=== PATIENT | male | born 1990 | race Caucasian/White ===

== ENCOUNTER 2016-10-12 19:19 | Emergency (ER) | payer OTHER ==
[~2016-10-12 19:19] MED LIST: PERCOCET 5-3251 EACH PO
--- NOTE | 2016-10-12 19:55 | ED PSYCHIATRIC COMPLAINT ---
See Addendum History of Present Illness General Chief Complaint: Psychiatric Related Complaint Stated Complaint: PSYCH EVAL Source: patient Exam Limitations: no limitations Vital Signs & Intake/Output Vital Signs & Intake/Output Vital Signs Date Time Temp Pulse Resp B/P B/P Pulse O2 O2 Flow FiO2 Mean Ox Delivery Rate 10/12 1928 96.6 100 18 156/102 Room Air Allergies Coded Allergies: Penicillins (Intermediate, HIVES 01/24/16) Reconcile Medications No Known Home Medications Triage Note: PT BIBA FOR ALTERED MENTAL STATUS. PER EMS REPORT, PT WAS HEARD BY NEIGHBOR YELLING OUT LOUD AND WAS CONCERNED. PATIENT REPORTS HE HAS BECOME OVERWHELMED BY LIFE CIRCUMSTANCES AND FELT THE NEED TO VENT. DENIES SI/HI/RECENT PSYCHIATRIC HX. Triage Nurses Notes Reviewed? yes HPI: Patient presents for evaluation of depression. He states that he hasn't slept in "a long time" being "up all the time". He states he feels worthless empty and depressed. He believes he's got PTSD and a body dysmorphia. He denies suicide or homicide ideation. Symptoms are becoming severe and the been more or less constant with fluctuating in intensity. Nothing seems to make him feel better (the patient smokes marijuana daily). He denies any drug use or cigarette smoking. He states he has never been treated or had any psychiatry evaluation for his current feelings. Past History Travel History Traveled to [place] past 21 day No Medical History Any Pertinent Medical History? 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 No Review of Systems Review of Systems Constitutional: Reports: no symptoms. EENTM: Reports: no symptoms. Respiratory: Reports: no symptoms. Cardiovascular: Reports: no symptoms. GI: Reports: no symptoms. Genitourinary: Reports: no symptoms. Musculoskeletal: Reports: no symptoms. Skin: Reports: no symptoms. Neurological/Psychological: Reports: see HPI. Hematologic/Endocrine: Reports: no symptoms. Immunologic/Allergic: Reports: no symptoms. All Other Systems: Reviewed and Negative Physical Exam Physical Exam General Appearance: SEE BELOW Neurological/Psychiatric: SEE BELOW Comments: General: Alert, calm, cooperative Head: Normocephalic, atraumatic Eyes: Normal inspection, no nystagmus, EOMI Ears: Normal inspection Nose: Normal inspection Throat: Moist mucosa Neck: Supple, no goiter Heart: Regular rate and rhythm, no murmurs rubs or gallops Lungs: Clear to auscultation bilaterally with good air entry Abdomen: Soft nontender nondistended, normal bowel sounds Chest: Nontender Extremities: Normal range of motion grossly, no tremors present, no cyanosis clubbing or edema of the upper extremities Neurologic: cranial nerves II through XII grossly intact, speech clear, gait normal Psychiatric: No apparent delusions or hallucinations, no pressured speech or thought blocking SAD PERSONS Done? patient not suicidal Progress Differential Diagnosis: DEPRESSION, PERSONALITY DISORDER Plan of Care: Orders Procedure Date/time Status URINE DRUGS OF ABUSE 10/12 1953 Complete ETHANOL 10/12 1953 Complete CBC WITHOUT DIFFERENTIAL 10/12 1953 Complete BASIC METABOLIC PANEL 10/12 1953 Complete ED CRISIS PSYCH CONSULT 10/12 1953 Active Laboratory Tests 10/12/162044: Urine Opiates Screen < 100.00, Methadone Screen < 40, Barbiturate Screen < 60, Ur Phencyclidine Scrn < 6.00, Amphetamines Screen < 100, U Benzodiazepines Scrn < 85, Urine Cocaine Screen < 50, Urine Cannabis Screen > 80.00 H 10/12/162033: Anion Gap 12, Estimated GFR > 60, BUN/Creatinine Ratio 18.2, Glucose 97, Calcium 9.8, CBC w Diff NO MAN DIFF REQ, RBC 5.06, MCV 87.4, MCH 29.1, RDW 14.6 H, MPV 8.6, Gran % 73.8, Lymphocytes % 22.2, Monocytes % 2.2, Eosinophils % 1.6, Basophils % 0.2, Absolute Granulocytes 4.6, Absolute Lymphocytes 1.4, Absolute Monocytes 0.1 L, Absolute Eosinophils 0.1, Absolute Basophils 0, PUBS MCHC 33.3 , Serum Alcohol < 10.0 Departure Departure Disposition: HOME OR SELF CARE Condition: Stable Clinical Impression Primary Impression: Depression Qualifiers: Depression Type: unspecified Qualified Code: F32.9 - Major depressive disorder, single episode, unspecified Secondary Impressions: Marijuana smoker Referrals: PATIENT HAS NO PRIMARY CARE DR (PCP/Family) Additional Instructions: Follow-up with a psychiatrist as soon as possible. Contact the [facility] and arrange for follow-up appointment for general medical evaluation as soon as possible. Return if any concerns or sudden worsening. Thank you for choosing the [facility] for your care. It was a pleasure to serve you today. Sudheer Muñoz M.D. [facility] Departure Forms: Customer Survey General Discharge Information Prescriptions: Current Visit Scripts No Known Home Medications
[2016-10-12 20:42] LABS: ABSOLUTE BASOPHIL COUNT 0 /CUMM (0.0-0.2); ABSOLUTE EOSINOPHIL COUNT 0.1 /CUMM (0.0-0.7); ABSOLUTE GRANULOCYTE CT 4.6 /CUMM (1.4-6.5); ABSOLUTE LYMPH COUNT 1.4 /CUMM (1.2-3.4); ABSOLUTE MONOCYTE COUNT 0.1 /CUMM (0.10-0.60); BASOPHIL % 0.2 % (0.0-2.0); EOSINOPHIL % 1.6 % (0-5); GRANULOCYTE % 73.8 % (42.2-75.2); HEMATOCRIT 44.2 % (42-52); MEAN CORPUSCULAR HGB 29.1 PG (27.0-31.0); MEAN CORPUSCULAR HGB CONC 33.3 G/DL (33.0-37.0); MEAN CORPUSCULAR VOLUME 87.4 FL (80.0-94.0); MEAN PLATELET VOLUME 8.6 FL (7.4-10.4); PLATELET COUNT 195 /CUMM (130-400); RBC DISTRIBUTION WIDTH 14.6 % (11.5-14.5); RED BLOOD CELL CT 5.06 /CUMM (4.70-6.10); WHITE BLOOD CELL COUNT 6.2 /CUMM (4.8-10.8)
[2016-10-12 22:00] VITALS: BP 127/66
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
== END 2016-10-12 22:22 ==
LOC: ERH 19:19
PROVIDERS: Emergency Medicine
DX: F32.9 Major depressive disorder, single episode, unspecified (principal); F12.10 Cannabis abuse, uncomplicated
CPT/HCPCS: 80307; G0463; G0480; J3101

== ENCOUNTER 2016-11-29 00:54 | Emergency (ER) | payer OTHER ==
[~2016-11-29] VITALS: Ht 190.5 cm; Wt 130.6 kg
--- NOTE | 2016-11-29 01:51 | ED GI/GU/ABDOMINAL COMPLAINT ---
History of Present Illness General Chief Complaint: Abdominal Pain/Flank Pain Stated Complaint: SEVERE CONSTIPATION, ABD PAIN, VOMITING PER PT Source: patient, family, old records Exam Limitations: no limitations Vital Signs & Intake/Output Vital Signs & Intake/Output Vital Signs Date Time Temp Pulse Resp B/P B/P Pulse O2 O2 Flow FiO2 Mean Ox Delivery Rate 11/29 0348 98.7 82 20 132/80 98 Room Air 11/29 0145 98 Room Air 11/29 0105 96.7 87 16 136/83 99 Room Air Allergies Coded Allergies: Penicillins (Intermediate, HIVES 01/24/16) Reconcile Medications Ondansetron (Zofran Odt) 4 MG TAB.RAPDIS 1 TAB SL TID PRN nausea Polyethylene Glycol 3350 (Miralax) 17 GRAM/DOSE POWDER 17 GM PO DAILY constipation mix with water, juice, soda, coffee or tea use until stools soft and regular Triage Note: 26YO MALE TO TRIAGE W/CO NO BM X 4 D, VOMITING TONITE. STATES HE "TOOK A LAXATIVE 2100 THEN VOMITED 2230" Triage Nurses Notes Reviewed? yes Onset: Last week Duration: constant, continues in ED Timing: recent history Quality/Severity: fullness, mild, moderate Location: generalized abdomen Radiation: no radiation Activities at Onset: none Prior Abdominal Problems: similar symptoms Past Sexual History: Unobtainable at this time Modifying Factors: Worsens With: eating. Associated Symptoms: abdominal pain, loss of appetite, nausea/vomiting HPI: 4-5 days prior to admission patient reports no bulky stool. He took a laxative tonight and developed nausea vomiting with generalized abdominal cramping. He denies fever chills chest pain cough shortness breath headache dysuria rash bleeding. Past History Travel History Traveled to [place] past 21 day No Medical History Any Pertinent Medical History? 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 No Review of Systems Review of Systems Constitutional: Reports: no symptoms. EENTM: Reports: no symptoms. Respiratory: Reports: no symptoms. Cardiovascular: Reports: no symptoms. GI: Reports: see HPI, abdominal pain, constipation, nausea, vomiting. Genitourinary: Reports: no symptoms. Musculoskeletal: Reports: no symptoms. Skin: Reports: no symptoms. Neurological/Psychological: Reports: no symptoms. Hematologic/Endocrine: Reports: no symptoms. Immunologic/Allergic: Reports: no symptoms. All Other Systems: Reviewed and Negative Physical Exam Physical Exam General Appearance: well developed/nourished, alert, awake, anxious, mild distress Head: atraumatic, normal appearance Eyes: Bilateral: normal appearance, PERRL, EOMI, normal inspection. Ears, Nose, Throat, Mouth: hearing grossly normal, moist mucous membrane Neck: normal inspection, supple, full range of motion, normal alignment Respiratory: normal breath sounds, chest non-tender, no respiratory distress, quiet respiration, lungs clear Cardiovascular: regular rate/rhythm, normal peripheral pulses, norml femoral pulses equa Peripheral Pulses: 4+ carotid (R), 4+ carotid (L) Gastrointestinal: normal bowel sounds, soft, non-tender, no organomegaly Male Genitals: normal genitalia Back: normal inspection, normal range of motion Extremities: normal range of motion, no ligament instability Neurologic/Psych: no motor/sensory deficits, awake, alert, oriented x 3, normal gait, normal mood/affect Skin: intact, normal color, warm/dry Core Measures ACS in differential dx? No Severe Sepsis Present: No Septic Shock Present: No Progress Differential Diagnosis: biliary colic, gastritis, hernia Plan of Care: Current Medications Sig/Edith Start time Last Medication Dose Stop Time Status Admin Magnesium Citrate 300 ML ONE ONE 11/29 329 UNVr (Citrate Of Magnesia 11/29 330 300 Ml) Ondansetron HCl 4 MG ONCE ONE 11/29 329 UNVr (Zofran) 11/29 330 Diagnostic Imaging: Viewed by Me: Radiology Read. Discussed w/RAD: Radiology Read. Radiology Impression: No significant stool burden. Nonspecific bowel gas pattern. Initial ED EKG: none Departure Departure Time of Disposition: 325 Disposition: HOME OR SELF CARE Condition: Stable Clinical Impression Primary Impression: Constipation Qualifiers: Constipation type: unspecified constipation type Qualified Code: K59.00 - Constipation, unspecified Secondary Impressions: Vomiting Qualifiers: Vomiting type: unspecified Vomiting Intractability: non-intractable Nausea presence: with nausea Qualified Code: R11.2 - Nausea with vomiting, unspecified Referrals: PATIENT HAS NO PRIMARY CARE DR (PCP/Family) Departure Forms: Customer Survey General Discharge Information Prescriptions: Current Visit Scripts Polyethylene Glycol 3350 (Miralax) 17 GM PO DAILY #255 GM mix with water, juice, soda, coffee or tea use until stools soft and regular Ondansetron (Zofran Odt) 1 TAB SL TID PRN nausea #10 TAB
--- NOTE | 2016-11-29 03:08 | RADIOLOGY REPORT ---
EXAMINATION: XR ABDOMEN MULTIPLE VIEWS CLINICAL INDICATION: Constipation, no stool for 4 days with nausea/vomiting COMPARISON: None TECHNIQUE: 2 views of the abdomen. FINDINGS: No intra-abdominal free air is seen. There is small and large bowel gas throughout the abdomen, without significant dilation to strongly suggest obstruction. A few nonspecific air-fluid levels are noted on the upright images. No significant stool burden is seen. No suspicious calcifications are identified. No acute osseous findings are seen. IMPRESSION: No significant stool burden. Nonspecific bowel gas pattern.
[2016-11-29] MEDS ORDERED: MIRALAX119 GM PO (03:28)
[2016-11-29] MEDS ORDERED: ZOFRAN ODT4 M1 SL (03:28)
[2016-11-29 03:48] VITALS: BP 132/80
== END 2016-11-29 03:50 ==
LOC: ERH 00:54
DX: K59.00 Constipation, unspecified (principal); R11.2 Nausea with vomiting, unspecified
CPT/HCPCS: 74020; J3101